=== PATIENT | female | born 1985 | race Caucasian/White ===

== ENCOUNTER 2016-09-16 20:43 | Day surgery (SDC) | payer OTHER ==
[~2016-09-16] VITALS: Ht 157.5 cm; Wt 58.4 kg
[~2016-09-16 20:43] MED LIST: DOCU-30 PO; HYDR-3240 PO; IBUP-1222 PO; PREN1TAB27 PO
[2016-09-16 21:21] LABS: HEMOGLOBIN 13.7 g/dL (11.7-16.4)
[2016-09-16 21:34] LABS: ASPARTATE AMINO TRANSFERASE 16 U/L (15-37); BLOOD UREA NITROGEN 12 mg/dL (7-18)
[2016-09-16] MEDS ORDERED: MORPHINE SULFATE 4 MG/ML, 1ML IVPush PRN (22:00)
[2016-09-16] MEDS ORDERED: SODIUM CHLORIDE FLUSH 10ML SYR IVF ONE (22:00)
[2016-09-16] MEDS ORDERED: SODIUM CHLORIDE 0.9% 1,000ML IVBOLUS ONE (22:00)
[2016-09-16] MEDS ORDERED: ONDANSETRON 2MG/ML, 2ML IVPush ONE (22:00)
[2016-09-16] MEDS ORDERED: ONDANSETRON 2MG/ML, 2ML ONE (22:20)
[2016-09-16] MEDS ORDERED: MORPHINE SULFATE 4 MG/ML, 1ML ONE (22:20)
[2016-09-16] MEDS ORDERED: OMNIPAQUE 350 MG/ML, 100ML BOTTLE ONE (22:33)
[2016-09-16] MEDS ORDERED: PIPERACILLIN/TAZO/PMX 3.375GM 50 ML IV ONE (23:00)
[2016-09-16 23:04] VITALS: BP 142/80
[2016-09-16] MEDS ORDERED: PIPERACILLIN/TAZO/PMX 3.375GM 50 ML ONE (23:07)
[2016-09-16] MEDS ORDERED: BUPIVACAINE/PF-EPI 0.5% 1:200K ONE (23:23)
[2016-09-17] MEDS ORDERED: FENTANYL PF 250 MCG/5ML ONE (00:24)
[2016-09-17] MEDS ORDERED: MIDAZOLAM 1 MG/ML, 2ML ONE (00:24)
[2016-09-17] MEDS ORDERED: ROCURONIUM 10 MG/ML ONE (00:29)
[2016-09-17] MEDS ORDERED: KETOROLAC 30 MG/1 ML ONE (00:29)
[2016-09-17] MEDS ORDERED: ONDANSETRON 2MG/ML, 2ML ONE (00:29)
[2016-09-17] MEDS ORDERED: PROPOFOL 10 MG/ML, 20ML ONE (00:29)
[2016-09-17] MEDS ORDERED: PHENYLEPHRINE 10 MG/ML ONE (00:29)
[2016-09-17] MEDS ORDERED: DEXAMETHASONE 4 MG/ML, 1ML ONE (00:29)
[2016-09-17] MEDS ORDERED: SUCCINYLCHOLINE 20 MG/ML, 10ML ONE (00:29)
[2016-09-17] MEDS ORDERED: BUPIVACAINE/PF-EPI 0.5% 1:200K IM ONE (00:43)
[2016-09-17] MEDS ORDERED: OXYcodone 5 MG/5 ML ORAL.SOL UDC ONE (01:13)
[2016-09-17] MEDS ORDERED: FENTANYL PF 100 MCG/2ML ONE (01:13)
[2016-09-17] MEDS: FENTANYL PF 100 MCG/2ML IV PRN ×2 (01:20→01:34)
[2016-09-17] MEDS ORDERED: PROMETHAZINE 25 MG/ML, 1ML IV PRN (01:30)
[2016-09-17] MEDS ORDERED: hydrALAzine 20 MG/ML, 1ML IV PRN (01:30)
[2016-09-17] MEDS ORDERED: ONDANSETRON 2MG/ML, 2ML IVPush PRN ×2 (01:30→03:00)
[2016-09-17] MEDS ORDERED: OXYcodone 5 MG/5 ML ORAL.SOL UDC PO PRN (01:30)
[2016-09-17] MEDS ORDERED: LABETALOL 5MG/ML, 20ML IV PRN (01:30)
[2016-09-17] MEDS ORDERED: METOCLOPRAMIDE 5 MG/ML, 2ML IV PRN (01:30)
[2016-09-17] MEDS ORDERED: ACETAMINOPHEN 325 MG TABLET PO PRN (01:30)
[2016-09-17] MEDS ORDERED: HYDROmorphone 1 MG/ML, 1ML IV PRN (01:30)
[2016-09-17] MEDS ORDERED: MIDAZOLAM 1 MG/ML, 2ML IV PRN (01:30)
[2016-09-17] MEDS ORDERED: MEPERIDINE/PF 25MG/0.5ML IVPush PRN (01:30)
[2016-09-17] MEDS ORDERED: OXYcodone/APAP 5/325MG TABLET PO PRN (03:00)
[2016-09-17] MEDS ORDERED: MORPHINE SULFATE 4 MG/ML, 1ML IVPush PRN (03:00)
[2016-09-17] MEDS ORDERED: LACTATED RINGERS 1,000 ML IV SCH (03:00)
== END 2016-09-17 11:30 | disposition home or self-care (01) ==
LOC: ED 21:50 → UNDOADMIN 23:09 → EDIP 23:09 → SDC 23:55 → 3WST 09-17 02:10 → EDIP 09-17 02:10 → SDC 09-17 11:30 → UNDODISIN 09-17 11:30
PROVIDERS: ATTEND Surgery
DX: K35.80 Unspecified acute appendicitis (principal)
CPT/HCPCS: 36415; 44970; 74177; 80053; 81003; 83690; 84703; 85025; 88304; 96361; 96365; 99285; J0330; J1100; J1885; J2250; J2370; J2405; J2543; J2704; J3010; J7030; Q9967; G0378

== ENCOUNTER → 2020-08-20 | Outpatient (CLI) | payer OTHER ==
[~2020-08-20] MED LIST changes: +DOCU-131 PO; -DOCU-30 PO; +HYDR-1067 PO; -HYDR-3240 PO
== END | disposition home or self-care (01) ==
LOC: CVU 10:13
PROVIDERS: ATTEND Internal Medicine Cardiovascular Disease
DX: I35.1 Nonrheumatic aortic (valve) insufficiency (principal); R00.2 Palpitations
CPT/HCPCS: 93306; 93356